=== PATIENT | female | born 1960 | race Two or more races ===

== ENCOUNTER 2023-11-21 10:29 | Emergency (ER) | payer MEDICARE ==
[~2023-11-21] VITALS: Ht 160 cm; Wt 93.9 kg
[~2023-11-21 10:29] MED LIST: ESCI20TA PO
[2023-11-21 10:43] VITALS: BP 154/75; TEMP 98.6
[2023-11-21] MEDS ORDERED: FLUT16SP16 BNOSTRILS (11:28)
[2023-11-21 11:40] VITALS: O2SAT 97
== END 2023-11-21 11:40 | disposition home or self-care (01) ==
LOC: ER 10:38
DX: H92.02 Otalgia, left ear (principal); F32.A Depression, unspecified; F17.200 Nicotine dependence, unspecified, uncomplicated; Z60.2 Problems related to living alone